=== PATIENT | male | born 1980 | race Caucasian/White ===

== ENCOUNTER 2016-07-24 10:39 | Emergency (ER) | payer BC ==
[~2016-07-24] VITALS: Ht 180.3 cm; Wt 147.1 kg
[~2016-07-24 10:39] MED LIST: AMOXICILLIN500 M1 PO; AMOXICILLIN875 MG PO; DEBROX15 ML BOTH EARS; MOTRIN800 MG PO; NAPROXEN500 MG PO; NORCO 10/3251 TABLET PO; NORCO 5/3251 TABLET PO; VALIUM5 MG PO
[2016-07-24 11:04] VITALS: BP 139/89
[2016-07-24] MEDS ORDERED: MOTRIN800 MG PO (13:00)
== END 2016-07-24 13:08 | disposition home or self-care (01) ==
LOC: EME 10:39
DX: G89.29 Other chronic pain (principal); M54.41 Lumbago with sciatica, right side; F17.200 Nicotine dependence, unspecified, uncomplicated; Z88.6 Allergy status to analgesic agent; Z88.5 Allergy status to narcotic agent
CPT/HCPCS: 99281; 99284

== ENCOUNTER 2016-08-17 23:35 | Emergency (ER) | payer BC ==
[~2016-08-17] VITALS: Ht 180.3 cm; Wt 158.1 kg
[2016-08-18 00:38] LABS: ADD MIUA? YES; BILIRUBIN NEGATIVE; BLOOD MODERATE; COLOR YELLOW ((YELLOW)); GLUCOSE (STRIP) NEGATIVE; KETONES 5; LEUKOCYTES SMALL; NITRITE NEGATIVE; PROTEIN (STRIP) NEGATIVE; SPECIFIC GRAVITY 1.027 (1.000-1.030); UROBILINOGEN 0.2 MG/DL (0.2-1.0)
[2016-08-18 00:42] LABS: BACTERIA NONE SEEN /HPF; EPITHELIAL CELLS RARE /HPF; MUCUS TRACE /LPF
[2016-08-18] MEDS ORDERED: MOTRIN800 MG PO (01:34)
[2016-08-18] MEDS ORDERED: ULTRACET1 TABLET PO (01:34)
[2016-08-18] MEDS ORDERED: VALIUM5 MG PO (01:34)
[2016-08-18 01:48] VITALS: BP 135/85
[2016-08-18 13:13] LABS: CHLAMYDIA TRACHOMATIS NEGATIVE; NEISSERIA GONORRHOEAE NEGATIVE
== END 2016-08-18 01:50 | disposition home or self-care (01) ==
LOC: EME 23:35 → RME 23:35
PROVIDERS: Physician Assistant
DX: M54.41 Lumbago with sciatica, right side (principal); G89.29 Other chronic pain; R31.29 Other microscopic hematuria; F17.200 Nicotine dependence, unspecified, uncomplicated
CPT/HCPCS: 81003; 87086; 87491; 87591; 99281; 99284; J1885

== ENCOUNTER 2016-12-01 02:53 | Emergency (ER) | payer BC ==
[~2016-12-01] VITALS: Ht 177.8 cm; Wt 159.9 kg
[~2016-12-01 02:53] MED LIST changes: +ULTRACET1 TABLET PO
[2016-12-01] MEDS ORDERED: AUGMENTIN875 MG PO (03:15)
[2016-12-01] MEDS ORDERED: CIPRODEX OTIC7.5 ML BOTH EARS (03:15)
[2016-12-01 03:41] VITALS: BP 167/95
== END 2016-12-01 03:43 | disposition home or self-care (01) ==
LOC: EME 02:53
DX: H60.93 Unspecified otitis externa, bilateral (principal); F17.200 Nicotine dependence, unspecified, uncomplicated; Z88.6 Allergy status to analgesic agent
CPT/HCPCS: 99281; 99283